=== PATIENT | female | born 1945 | race Caucasian/White ===

== ENCOUNTER 2019-03-29 05:07 | Observation (INO) | payer MEDICARE, SELFPAY ==
[2019-03-29] VITALS (21 sets, daily range): BP systolic 137–146; BP diastolic 58–80; PULSE 83–106; RESP 16–26; TEMP 36.1–36.7; O2SAT 89–96; BMI 31.1
--- NOTE | ~2019-03-29 | CT_ITS ---
EXAMINATION: CTA chest PE protocol DATE: 03/29/2019 09:02 PRINT MANAGER INDICATION: Shortness of breath. Elevated d-dimer. TECHNIQUE: Computed tomographic angiography (CTA) of the chest was performed with 100 mL Omnipaque-35 0 intravenous contrast. The dose-length product was 419.63 mGy-cm. Maximum intensity projection 3D-re constructions of the aorta and other arteries were constructed by the technologist on a separate work station. Automated exposure control and iterative reconstruction technique were employed. COMPARISON: Chest dated 03/29/2019 FINDINGS: Study is technically adequate without evidence for pulmonary embolism. No significant pleur al or pericardial effusion. Cardiomegaly. No thoracic lymphadenopathy. There is discoid atelectasis i n the lower lobes and lingula. No endobronchial lesions. No suspicious pulmonary nodules or masses. N o pneumothorax. There are cholecystectomy clips. There is a 5 mm right middle lobe nodule. IMPRESSION: 1. No evidence for pulmonary embolism. 2: Discoid atelectasis of the lower lobes and lingula. 3: 5 mm right middle lobe nodule. Follow-up low dose CT chest in 12 months recommended. 4: Cardiomegaly. Reviewed, dictated and finalized at location A. T MANAGER IMPRESSION: 1. No evidence for pulmonary embolism. 2: Discoid atelectasis of the lower lobes and lingula. 3: 5 mm right middle lobe nodule. Follow-up low dose CT chest in 12 months rec ommended. 4: Cardiomegaly.
--- NOTE | ~2019-03-29 | XR_ITS ---
EXAMINATION: XR chest 1V portable DATE: 03/29/2019 05:44 INDICATION: Dyspnea TECHNIQUE: frontal view of the chest was obtained. COMPARISON: None FINDINGS: The lungs are clear with no focal airspace opacities, pulmonary edema, pleural effusion or pneumothor ax. The cardiomediastinal silhouette is normal. Mild scattered degenerative skeletal changes. IMPRESSION: 1. No acute cardiopulmonary disease. Reviewed, dictated and finalized at location A. T OR NUT GROWER
--- NOTE | ~2019-03-29 | XR_ITS ---
EXAMINATION: XR chest 2V DATE: 03/30/2019 09:00 INDICATION: Asthma exacerbation TECHNIQUE: Frontal and lateral views of the chest are obtained COMPARISON: 03/29/2019 FINDINGS: There is mild atelectasis of the lung bases. There is no pleural effusion or pneumothorax. The cardiomediastinal silhouette is normal. There is mild thoracic spondylosis. Cholecystectomy clips are noted. IMPRESSION: 1. Mild atelectasis of the lung bases. Reviewed, dictated and finalized at location A. TAPPING LABORER
--- NOTE | 2019-03-29 05:16 | ECG_ITS ---
Measurements Intervals [place] Rate: 99 P: 74 SD: 255 QRS: 17 QRSD: 98 T: 58 QT: 347 QTc: 447 Interpretive Statements SINUS RHYTHM WITH FIRST DEGREE AV BLOCK DELAYED PRECORDIAL R/S TRANSITION BORDERLINE ST-T WAVE ABNORMALITY- LATERAL LEADS BASELINE ARTIFACT- I, II, III ABNORMAL ECG Electronically Signed On 03-29-2019 7:06:47 CONSULTING PRACTICE MANAGER by Lamine Clayton D.O.
[2019-03-29] MEDS: LEVALBUTEROL NEB 1.25 MG/3 ML INHALATION (05:24)
[2019-03-29] MEDS: methylPREDNISolone SOD SUCC 125 MG VIAL IV PUSH (05:27)
[2019-03-29 05:37] LABS: Basophils Percent Auto 0.9 % (0.0-1.0); Eosinophils Absolute Auto 1.02 K/mm3 (0.02-0.50); Eosinophils Percent Auto 8.9 % (1.0-6.0); Hematocrit 40.3 % (35.0-42.0); Hemoglobin 13.5 g/dL (11.7-13.8); Immature Granulocyte Absolute 0.04 K/mm3 (0.00-0.00); Immature Granulocyte Percent A 0.3 % (0.0-0.0); Lymphocytes Absolute Auto 2.66 K/mm3 (1.10-4.50); Lymphocytes Percent Auto 23.2 % (18.0-42.0); Mean Corpuscular HGB Conc 33.5 g/dL (32.0-36.0); Mean Corpuscular Hemoglobin 28.8 pg (27.0-31.0); Mean Corpuscular Volume 86.1 fL (78.0-102.0); Mean Platelet Volume 8.9 fl (9.2-11.8); Monocytes Absolute Auto 1.15 K/mm3 (0.10-0.90); Neutrophils Absolute Auto 6.5 K/mm3 (1.7-7.2); Neutrophils Percent Auto 56.7 % (50.0-70.0); Platelet Count Result 363 K/mm3 (150-420); Red Blood Count 4.68 M/mm3 (4.20-5.40); Red Cell Distribution Width 13.3 % (11.6-14.4); White Blood Count 11.5 K/mm3 (4.8-10.8)
[2019-03-29 05:54] LABS: BNP 12.4 pg/mL (0-100)
[2019-03-29 05:57] LABS: Alanine Aminotransferase 26 U/L (14-59); Albumin Level 3.9 g/dL (3.4-5.0); Alkaline Phosphatase 81 U/L (46-116); Aspartate Amino Transferase 25 U/L (15-37); Bilirubin,Total 0.5 mg/dL (0.00-1.00); Blood Urea Nitrogen 20 mg/dL (7-18); Calcium 9.8 mg/dL (8.5-10.1); Carbon Dioxide 26 mmol/L (21-32); Chloride 97 mmol/L (98-108); Estimated CRCL calculation 46 ml/min; Estimated Glomerular Filt Rate 57; Glucose 168 mg/dL (70-99); Osmolality Calculated 284 mOsm/kg (285-295); Sodium 134 mmol/L (136-145); Total Protein 7.6 g/dL (6.4-8.2)
[2019-03-29 05:58] LABS: Troponin I < 0.02 ng/mL (0.00-0.056)
--- NOTE | 2019-03-29 05:58 | ED.SOB ---
HPI - SOB/Dyspnea General Chief Complaint: Shortness of Breath/Dyspnea Stated Complaint: SOB, Cough Related Data Home Medications Medication Instructions Recorded Confirmed amitriptyline 50 mg tablet 50 mg PO .Bedtime tablet 03/15/19 03/29/19 atenolol 100 mg tablet 100 mg PO DAILY 03/15/19 03/29/19 atorvastatin 40 mg tablet 40 mg PO DAILY 03/15/19 03/29/19 diltiazem HCl 120 mg 240 mg PO DAILY cap 03/15/19 03/29/19 capsule,extended release 12 hr famotidine 10 mg tablet 20 mg PO DAILY tablet 03/15/19 03/29/19 levothyroxine 100 mcg tablet 100 mcg PO DAILY 03/15/19 03/29/19 liraglutide 0.6 mg/0.1 mL (18 mg/3 See Rx Instructions SUB-Q .COMPLEX 03/15/19 03/29/19 mL) subcutaneous pen injector lutein 20 mg capsule 20 mg PO DAILY 03/15/19 03/29/19 metformin 500 mg tablet 500 mg PO BID 03/15/19 03/29/19 olmesartan 40 mg tablet 40 mg PO DAILY 03/15/19 03/29/19 benzonatate 200 mg PO PRN 03/29/19 03/29/19 Allergies Allergy/AdvReac Type Severity Reaction Status Date / Time codeine Allergy Unknown Unknown Verified 03/28/19 14:27 Review of Systems Review of Systems: All systems reviewed & are unremarkable except as noted in HPI and below PMFSH Past Medical History Medical History DM2 (diabetes mellitus, type 2) LATRELL (generalized anxiety disorder) GERD (gastroesophageal reflux disease) Hyperlipidemia Hypertension Hypothyroidism Overweight Surgical History Surgical History History of cholecystectomy History of hysterectomy Hx of cataract surgery Bilateral 2015 Family History Family History Father Heart disease Hypertension Diabetes mellitus Mother Cerebrovascular accident CAD (coronary artery disease) Rheumatic heart disease Sibling Breast cancer Social History Social History Smoking status: Never smoker Substance use: never Additional living arrangements comments: . 2 Children. 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 Exam Const: General: no acute distress and alert Nutritional Appearance: well nourished Orientation/consciousness: oriented x3 Limitations: altered mental status HENMT: Head: normal to inspection Mouth: Yes dry mucous membranes Neck: Neck: normal visual inspection and no lymphadenopathy Chest: Chest palpation & inspection: normal inspection of the chest Resp: Effort & Inspection: normal respiratory effort and tachypneic Auscultation: rhonchi and wheezes Cardio: Rate: regular rate Rhythm: regular rhythm GI: GI Palp: Yes soft Auscultation: normal bowel sounds : General: Yes no CVA tenderness Back/Spine/Pelvis: Back: no CVA tenderness Skin: General skin exam: normal color Rashes: no rashes Neuro: General: oriented x3, moves all extremities, no meningeal signs and no focal motor deficits Extrem: General: normal to inspection and no pedal edema Psych: Mental Status: mental status grossly normal Course Vital Signs Vital signs: Vital Signs Pulse Rate 106 H 03/29/19 05:16 Temperature 36.7 C 03/29/19 05:17 Pulse Rate 96 03/29/19 05:46 Respiratory Rate 20 03/29/19 05:46 Blood Pressure 146/79 H 03/29/19 05:17 Pulse Oximetry 90 03/29/19 05:17 MDM - SOB/Dyspnea Lab Data Attestation: I reviewed the patient's lab results. Result diagrams: 03/29/19 05:31 03/29/19 05:31 Labs: Lab Results 03/29/19 03/29/19 03/29/19 Range/Units 05:31 05:31 05:36 WBC 11.5 H (4.8-10.8) K/mm3 RBC 4.68 (4.20-5.40) M/mm3 Hgb 13.5 (11.7-13.8) g/dL Hct 40.3 (35.0-42.0) % MCV 86.1 (78.0-102.0) fL MCH 28.8 (27.0-31.0) pg MCHC 33.5 (32.0-36.0) g/dL RDW 13.3 (11.6-14.4) % Plt Count 363 (15
[2019-03-29 06:07] LABS: Influenza Control Valid (Valid)
[2019-03-29] MEDS: IPRATROPIUM 0.5 MG/ALBUTEROL SULFATE 2.5 MG AMPUL.NEB 3 ML INHALATION ×3 (06:30→17:48)
--- NOTE | 2019-03-29 06:57 | PC.NURSE ---
0630 Pt. taken off NC O2, p few min. SPO2 noted at 90% and pt. wheezing again. Pt. placed back on O2 at 2L. Pts. SPO2 increased to 96%.
--- NOTE | 2019-03-29 06:58 | PC.NURSE ---
ERP spoke to pt. about admission due to her SPO2 low p taken off O2 and need for further medications and neb tx. Pt. agreeable to admit. Pt. will be made 23 hr. obs.
[2019-03-29 07:20] LABS: Base Excess ABG -2.4 mmol/L (0-2); Oxygen Saturation ABG 93.4 % (95-97); PCO2 ABG 41.9 mmHg (35-45); PO2 ABG 65.6 mmHg (75-85); Total Hemoglobin 14.7 g/dL; pH ABG 7.36 (7.35-7.45)
[2019-03-29 07:22] LABS: Device NASAL CANNULA; Modified Allen's Test Pass; Site Drawn LEFT RADIAL
[2019-03-29 07:35] LABS: D Dimer 2.02 mg/L (0.19-0.50)
--- NOTE | 2019-03-29 07:57 | PC.NURSE ---
Admitted to floor, oriented to room and call light. Patient assisted from wheelchair to bed. Patient ambulated to restroom unassisted without oxygen. Patient returned to bed, SPO2 spot check 89% on room air. O2 replaced per nasal cannula at 2L. Patient in bed resting comfortably
--- NOTE | 2019-03-29 08:25 | PC.NURSE ---
Patient taken off floor to Radiology for chest CT
--- NOTE | 2019-03-29 08:52 | PM.IMHP ---
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 When she arrived at the ER, she was found to have PaO2 in the 60s. She had denied sick contacts, has had a non productive cough for the past month and was treated twice with inhalers, which did not help much at all last night. She denies smoking or being exposed to second hand smoke. This morning she got out of bed to walk to the bathroom, and ended up with O2 sats at 89 without O2 on. When she had O2 put on, her respirations improved. Review of Systems Review of Systems: All systems reviewed & are unremarkable except as noted in HPI and below Constitutional: Constitutional: Reports as per HPI and Reports no additional constitutional complaints Eyes: Eyes: Reports as per HPI and Reports no additional eye complaints ENT: Reports system reviewed and no additional complaints, except as documented and Reports as per HPI Cardiovascular: Cardiovascular: Reports as per HPI and Reports no additional cardiovascular complaints Respiratory: Respiratory: Reports as per HPI, Reports no additional respiratory complaints, Reports cough, Reports dyspnea, Reports dyspnea on exertion and Reports wheezing Gastrointestinal: Gastrointestinal: Reports as per HPI and Reports no additional gastrointestinal complaints Genitourinary: Genitourinary: Reports no additional female genitourinary complaints and Reports as per HPI Musculoskeletal: Musculoskeletal: Reports no additional musculoskeletal complaints and Reports as per HPI Integumentary/Breasts: Skin/Breast: Reports system reviewed and no additional complaints, except as docu and Reports as per HPI Neurologic: Reports system reviewed and no additional complaints, except as documented and Reports as per HPI Psychiatric: Psychiatric: Reports no additional psychiatric complaints and Reports as per HPI PMF Past Medical History Medical History (Updated 03/29/19 @ 14:43 by Rachel Schwab NP) Asthma DM2 (diabetes mellitus, type 2) LATRELL (generalized anxiety disorder) GERD (gastroesophageal reflux disease) Hyperlipidemia Hypertension Hypothyroidism Osteoporosis Overweight Surgical History Surgical History (Updated 03/29/19 @ 09:57 by Rachel Schwab NP) History of cholecystectomy History of hysterectomy History of tonsillectomy Hx of cataract surgery Bilateral 2014 Family History Family History Father Heart disease Hypertension Diabetes mellitus Mother Cerebrovascular accident CAD (coronary artery disease) Rheumatic heart disease Sibling Breast cancer Social History Social History Smoking status: Never smoker Second hand tobacco smoke exposure: Yes ( smoked for 46 years, smoked in home and vehicle, quit in 1984) Alcohol intake: current Drinks per week: 0 Substance use: never Other substance usage details: rarely drinks alcohol Additional living arrangements comments: . 2 Children. Additional occupation/education comments: Prior Occupation: [employer] Gender identity (if verbalized by the patient): Female Spiritual care concerns: No Agree to blood products: Yes Meds Home Medications and Allergies Home Medications Medication Instructions Recorded Confirmed Type amitriptyline 50 mg tablet 50 mg PO .Bedtime tablet 03/15/19 03/29/19 History atenolol 100 mg tablet 100 mg PO DAILY 03/15/19 03/29/19 History atorvastatin 40 mg tablet 40 mg PO DAILY 03/15/19 03/29/19 History diltiazem HCl 120 mg 240 mg PO DAILY cap 03/15/19 03/29/19 History capsule,extended release 12 hr doxycycline hyclate 100 mg capsule 100 mg PO BID #20 cap 03/15/19 03/29/19 Rx famotidine 10 mg tablet 20
--- NOTE | 2019-03-29 09:10 | PC.NURSE ---
Patient returned to floor per wheelchair from CT
[2019-03-29] MEDS: SODIUM CHLORIDE 0.9% IV 1,000 ML 100 ML IV CONT ×2 (09:19→18:26)
[2019-03-29] MEDS: FAMOTIDINE 20 MG TABLET PO (09:21)
[2019-03-29] MEDS: OLMESARTAN MEDOXOMIL 20 MG TABLET 40 MG PO (09:21)
[2019-03-29] MEDS: atenoloL 50 MG TABLET 100 MG PO (09:25)
[2019-03-29] MEDS: OPTI-GEN TAB 1 TABLET PO (09:25)
[2019-03-29] MEDS: DOXYCYCLINE HYCLATE 100 MG TABLET PO ×2 (09:25→20:16)
[2019-03-29] MEDS: LEVOTHYROXINE SODIUM 100 MCG TABLET PO (09:28)
[2019-03-29] MEDS: ENOXAPARIN 40 MG/0.4 ML SYRINGE SUB-Q (09:36)
--- NOTE | 2019-03-29 10:30 | PC.NURSE ---
Resting in bed, no distress, oxygen in place at this time
[2019-03-29 11:52] LABS: Glucose Point of Care 237 (65-105)
[2019-03-29] MEDS: methylPREDNISolone SOD SUCC 125 MG VIAL 60 MG IV PUSH ×2 (12:00→17:47)
--- NOTE | 2019-03-29 13:36 | P.PNCROSS_ITS ---
Event Note Event Note: For this patient encounter, I reviewed the CORE MICROARCHITECT or PA documentation, treatment plan, and medical decision making; and I had dgmc-wn-wpnf time with this patient. Breath sounds decreased throughout all lung messer. Able to speak full sentences, but somewhat labored.
--- NOTE | 2019-03-29 13:36 | PM.EVENT ---
Event Note Event Note: For this patient encounter, I reviewed the LICENSED CUSTOMS BROKER or PA documentation, treatment plan, and medical decision making; and I had acom-np-dash time with this patient. Breath sounds decreased throughout all lung messer. Able to speak full sentences, but somewhat labored.
[2019-03-29 16:46] LABS: Glucose Point of Care 261 (65-105)
[2019-03-29] MEDS: CALCIUM CARBONATE (OSCAL) 250 MG TABLET PO (17:11)
--- NOTE | 2019-03-29 17:18 | PC.NURSE ---
Sitting on edge of bed eating dinner, no acute distress noted, oxygen on at this time, cough occassional, non productive
--- NOTE | 2019-03-29 17:43 | PC.NURSE ---
up to void, gait steady, tolerated well, no distress noted
[2019-03-29] MEDS: CALCIUM CARBONATE (OSCAL) 500 MG TABLET (17:50)
--- NOTE | 2019-03-29 18:30 | PC.NURSE ---
Resting in bed with HOB elevated, fluids infusing, oxygen in palce
--- NOTE | 2019-03-29 20:10 | PC.NURSE ---
Patient sitting on side of bed watching tv. Respirations even and unlabored on O2 @ 2 lpm/nc. Intermittent non-productive cough continues. NS infusing to site in right hand without difficulty. Denies pain/complaints/needs @ this time. No distress noted. Call light and personal belongings within reach.
[2019-03-29] MEDS: AMITRIPTYLINE HCL 25 MG TABLET 50 MG PO (20:14)
[2019-03-29] MEDS: ATORVASTATIN 10 MG TABLET 40 MG PO (20:15)
[2019-03-29 20:21] LABS: Glucose Point of Care 258 (65-105)
--- NOTE | 2019-03-29 22:00 | PC.NURSE ---
Patient appears to be sleeping by the rise and fall of her chest. Respirations even and unlabored on O2 @ 2 lpm/nc. Intermittent non-productive cough continues. NS infusing to site in right hand without difficulty. No distress noted. Call light and personal belongings within reach.
[2019-03-30] VITALS (10 sets, daily range): BP systolic 112–150; BP diastolic 51–87; PULSE 84–97; RESP 16–20; TEMP 36.2–36.6; O2SAT 93–98
[2019-03-30] MEDS: methylPREDNISolone SOD SUCC 125 MG VIAL 60 MG IV PUSH ×2 (00:07→06:05)
[2019-03-30] MEDS: IPRATROPIUM 0.5 MG/ALBUTEROL SULFATE 2.5 MG AMPUL.NEB 3 ML INHALATION ×3 (00:08→11:28)
--- NOTE | 2019-03-30 01:05 | PC.NURSE ---
Patient appears to be sleeping by the rise and fall of her chest. Respirations even and unlabored on O2 @ 2 lpm/nc. NS infusing to site in right hand without difficulty. No distress noted. Call light and personal belongings within reach.
[2019-03-30] MEDS: SODIUM CHLORIDE 0.9% IV 1,000 ML 100 ML IV CONT (04:02)
[2019-03-30 05:00] LABS: Basophils Absolute Auto 0.01 K/mm3 (0.00-0.10); Basophils Percent Auto 0.1 % (0.0-1.0); Eosinophils Absolute Auto 0.01 K/mm3 (0.02-0.50); Eosinophils Percent Auto 0.1 % (1.0-6.0); Hematocrit 34.7 % (35.0-42.0); Hemoglobin 11.9 g/dL (11.7-13.8); Immature Granulocyte Percent A 0.9 % (0.0-0.0); Lymphocytes Absolute Auto 1.08 K/mm3 (1.10-4.50); Lymphocytes Percent Auto 9.2 % (18.0-42.0); Mean Corpuscular HGB Conc 34.3 g/dL (32.0-36.0); Mean Corpuscular Hemoglobin 29.5 pg (27.0-31.0); Mean Corpuscular Volume 86.1 fL (78.0-102.0); Mean Platelet Volume 8.9 fl (9.2-11.8); Monocytes Absolute Auto 0.24 K/mm3 (0.10-0.90); Neutrophils Absolute Auto 10.3 K/mm3 (1.7-7.2); Neutrophils Percent Auto 87.7 % (50.0-70.0); Platelet Count Result 292 K/mm3 (150-420); Red Blood Count 4.03 M/mm3 (4.20-5.40); Red Cell Distribution Width 13.2 % (11.6-14.4); White Blood Count 11.7 K/mm3 (4.8-10.8)
[2019-03-30 05:19] LABS: Alanine Aminotransferase 21 U/L (14-59); Albumin Level 3.2 g/dL (3.4-5.0); Alkaline Phosphatase 60 U/L (46-116); Anion Gap 16.1 mmol/L (7-16); Aspartate Amino Transferase 14 U/L (15-37); Bilirubin,Total 0.5 mg/dL (0.00-1.00); Blood Urea Nitrogen 18 mg/dL (7-18); Calcium 9.1 mg/dL (8.5-10.1); Carbon Dioxide 23 mmol/L (21-32); Chloride 98 mmol/L (98-108); Estimated CRCL calculation 52 ml/min; Estimated Glomerular Filt Rate > 60; Glucose 273 mg/dL (70-99); Magnesium 1.2 mg/dL (1.8-2.4); Osmolality Calculated 287 mOsm/kg (285-295); Phosphorus 3.1 mg/dL (2.6-4.7); Potassium 4.1 mmol/L (3.5-5.1); Sodium 133 mmol/L (136-145); Total Protein 6.5 g/dL (6.4-8.2)
[2019-03-30] MEDS: LEVOTHYROXINE SODIUM 100 MCG TABLET PO (06:06)
--- NOTE | 2019-03-30 06:10 | PC.NURSE ---
Patient awakened easily and took po med without difficulty. NS infusing to site in right hand without difficutly and Solumedrol given in same site. Denies pain/complaints/needs @ this time. RT starting patient's duoneb when nurse left room. No distress noted. Call light and personal belongings within reach.
[2019-03-30 07:58] LABS: Glucose Point of Care 266 (65-105)
[2019-03-30] MEDS: ENOXAPARIN 40 MG/0.4 ML SYRINGE SUB-Q (08:52)
[2019-03-30] MEDS: atenoloL 50 MG TABLET 100 MG PO (08:53)
[2019-03-30] MEDS: OLMESARTAN MEDOXOMIL 20 MG TABLET 40 MG PO (08:53)
[2019-03-30] MEDS: OPTI-GEN TAB 1 TABLET PO (08:53)
[2019-03-30] MEDS: DOXYCYCLINE HYCLATE 100 MG TABLET PO (08:53)
[2019-03-30] MEDS: FAMOTIDINE 20 MG TABLET PO (08:54)
--- NOTE | 2019-03-30 10:03 | PM.DS ---
DS: Diagnosis Admitting Diagnosis Admitting Diagnosis: Acute respiratory failure with hypoxia Discharge Diagnosis (1) Acute respiratory failure with hypoxia: Code(s): J96.01 - Acute respiratory failure with hypoxia Status: Acute Assessment and Plan: - ?new diagnosis of asthma - will need PFT - nebs and steroids (steroids to change to PO) - will keep calcium and PPI in regimen while on steroids - antibiotics (2) Elevated d-dimer: Code(s): R79.89 - Other specified abnormal findings of blood chemistry Status: Acute Assessment and Plan: - negative CTA for pulmonary embolism (3) Asthma with acute exacerbation: Code(s): J45.901 - Unspecified asthma with (acute) exacerbation Status: Acute Assessment and Plan: - no prior h/o or diagnosis of asthma made - will need outpt PFTs (4) Pulmonary nodule seen on imaging study: Code(s): R91.1 - Solitary pulmonary nodule Status: Acute Assessment and Plan: - will need follow up in 12 months per radiologist's recommendations (5) DM2 (diabetes mellitus, type 2): Code(s): E11.9 - Type 2 diabetes mellitus without complications Status: Acute Assessment and Plan: - held metformin for IVP dye, OK to start on metformin again tonight 03/30/19 - SSI ACHS - resume other home meds (6) Hypothyroidism: Code(s): E03.9 - Hypothyroidism, unspecified Status: Acute Assessment and Plan: - on LT4 (7) Hypertension: Code(s): I10 - Essential (primary) hypertension Status: Acute Assessment and Plan: - BP controlled (8) Hyperlipidemia: Code(s): E78.5 - Hyperlipidemia, unspecified Status: Acute Assessment and Plan: - on statin (9) Leukocytosis: Code(s): D72.829 - Elevated white blood cell count, unspecified Status: Acute Assessment and Plan: - likely 2/2 steroids, and reactive DS: Summary Hospital Course Reason for hospitalization: SOB with coughing Hospital Course: 03/29/19: 74 year old CF presented at the ER after a meeting at her [employer] where she was coughing uncontrollably and had trouble catching her breath. When she arrived at the ER, she was found to have PaO2 in the 60s. She had denied sick contacts, has had a non productive cough for the past month and was treated twice with inhalers, which did not help much at all last night. She denies smoking or being exposed to second hand smoke. This morning she got out of bed to walk to the bathroom, and ended up with O2 sats at 89 without O2 on. When she had O2 put on, her respirations improved. 03/30/19: today, she feels better and does not require oxygen. She says that she breathes better, and is not coughing as much. Status at Discharge Cognitive/behavioral status at discharge: alert, calm. Functional status at discharge: independent ambulation Overall status at discharge: patient is progressing back to baseline Time Spent with Patient Time attestation: Total time spent providing and/or coordinating discharge services: 35 minutes Exam Narrative: Exam Narrative: awake, alert, in no acute distress, no conversational dyspnea Const: General: comfortable and no acute distress; No in distress HENMT: Mouth: Yes moist mucous membranes Eyes: General: appearance normal, both eyes and all related structures Sclera: sclerae normal Pupils: PERRL EOM: EOM intact bilaterally Neck: Other: no tracheal deviation Chest: Other: no TTP chest pineda Resp: Effort & Inspection: normal respiratory effort, able to speak in complete sentences and no use of accessory muscles Cardio: Rate: regular rate Rhythm: regular rhythm GI: Inspection: non-distended Auscultation: normal bowel sounds : Other: deferred Skin: General skin exam: normal color and no rashes or lesions noted Neuro: Cranial nerves: Yes PERRL Cognition (Neuro): normal cognition Speech: normal speech Motor exam (neuro):
[2019-03-30] MEDS: predniSONE 20 MG TABLET 60 MG PO (10:09)
[2019-03-30] MEDS: MAGNESIUM SULF 4 GM/WATER100ML 4 GM/100 ML BAG IVPB (10:10)
[2019-03-30 12:09] LABS: Glucose Point of Care 296 (65-105)
--- NOTE | 2019-03-30 12:10 | PC.NURSE ---
Magnesium sulfate 4Gm stopped at 1210
[2019-03-30] MEDS: predniSONE 20 MG TABLET 60 MG (12:18)
[2019-03-30] MEDS: MAGNESIUM SULF 4 GM/WATER100ML 4 GM/100 ML BAG 50 GM (12:43)
--- NOTE | 2019-04-12 13:11 | PC.NURSE ---
Discharge Call Back [phone] unable to contact
== END 2019-03-30 13:38 | disposition home or self-care (01) ==
LOC: CHSED 06:48 → CHS2ND 06:57
PROVIDERS: Nurse Practitioner Acute Care; Admitting Provider Emergency Medicine; Emergency Provider Emergency Medicine; PCP Family Medicine; Visit Provider Emergency Medicine
DX: J96.01 Acute respiratory failure with hypoxia (principal); J45.901 Unspecified asthma with (acute) exacerbation; R79.89 Other specified abnormal findings of blood chemistry; R91.1 Solitary pulmonary nodule; E11.9 Type 2 diabetes mellitus without complications; K21.9 Gastro-esophageal reflux disease without esophagitis; E78.5 Hyperlipidemia, unspecified; I10 Essential (primary) hypertension; E03.9 Hypothyroidism, unspecified; M81.0 Age-related osteoporosis without current pathological fracture
CPT/HCPCS: 36415; 36600; 71045; 71046; 71275; 80053; 82805; 83735; 83880; 84100; 84484; 85025; 85380; 87040; 87804; 93005; 94618; 94640; 96361; 96365; 96366; 96372; 96375; 96376; 99283; 99285; A9270; G0378; J1650; J1815; J2930; J3475; J7030; J7512; Q9965

== ENCOUNTER 2020-04-03 12:56 | Outpatient (CLI) | payer MEDICARE, SELFPAY ==
[2020-04-06 16:54] LABS: SARS-CoV-2 RNA PCR Positive
== END 2020-04-03 12:57 | disposition home or self-care (01) ==
LOC: CHSLAB 13:00
PROVIDERS: PCP Family Medicine; Visit Provider Family Medicine
DX: U07.1 COVID-19 (principal)
CPT/HCPCS: 87635; C9803; U0003

== ENCOUNTER 2020-10-05 08:20 | Outpatient (CLI) | payer MEDICARE, SELFPAY ==
--- NOTE | ~2020-10-05 | DEXA_ITS ---
Bone Density Report Name: Elsi Pierce Age: 75 Sex: Female Ethnicity: White Date of : 1945 Indication: postmenopausal; screening for osteoporosis; height loss; hysterectomy; Referring Provider: Brooks See Study: Bone densitometry was performed. Exam Date: October 05, 2020 Accession number: [id number] Bone Density: Region BMD T-score Z-score Classification AP Spine(L1, L2) 1.082 0.9 3.2 Normal Femoral Neck (Left) 0.934 0.8 2.9 Normal Total Hip (Left) 1.088 1.2 3.0 Normal Femoral Neck (Right) 0.976 1.1 3.3 Normal Total Hip (Right) 1.110 1.4 3.2 Normal Femoral Neck Mean 0.955 1.0 3.1 Normal Total Hip Mean 1.099 1.3 3.1 Normal World Health Organization criteria for BMD impression classify patients as: Normal (T-score at or above -1.0), Osteopenia (T-score between -1.0 and -2.5), or Osteoporosis (T-score at or below -2.5). 10-year Fracture Risk: FRAX not reported because: All T-scores for Spine Total, Hip Total, Femoral Neck at or above -1.0 Previous Exams: Region Exam Age BMD T-score BMD Change BMD Change Date g/cm2 vs Baseline vs Previous AP Spine (L1-L2) 10/05/2020 75 1.082 0.9 -0.019 (-1.7%) -0.019 (-1.7%) 06/07/2018 73 1.101 1.1 Total Hip(Left) 10/05/2020 75 1.088 1.2 -0.152 (-12.3% -0.152 (-12.3% 06/07/2018 73 1.240 2.4 Total Hip(Right) 10/05/2020 75 1.110 1.4 -0.026 (-2.3%) -0.026 (-2.3%) 06/07/2018 73 1.136 1.6 *Denotes significance at 95% confidence level, LSC for AP Spine = 0.022 g/cm2, LSC for Total Hip = 0.027 g/cm2 # Denotes dissimilar scan types or analysis methods Clinical Information Provided by Patient: Has used the following medications: HRT (i.e. estrogen/hormone therapy), Vitamin D, Calcium Has the following medical conditions: Hysterectomy Patient maximum height was 63 No regular weight bearing exercise Drinks caffeinated beverages Onset of menses at age 11 Number of children 2 Impression: The patient has normal bone mass. No significant bone loss was observed. Discussion: LOW RISK OF FRACTURE; BONE DENSITY IS WELL ABOVE THE MINIMUM DESIRABLE LEVEL AND ABOVE AVERAGE FOR AGE AND SEX AT ALL SKELETAL SITES TESTED. This person's bone density is above expected limits for age and sex. This is rarely clinically significant, but should be pursued if there are significant musculoskeletal complaints. The patient should follow a healthful lifestyle (g
== END 2020-10-05 08:21 | disposition home or self-care (01) ==
LOC: CHSIMG 08:21
PROVIDERS: PCP Family Medicine; Visit Provider Family Medicine
DX: Z78.0 Asymptomatic menopausal state (principal)
CPT/HCPCS: 77080

== ENCOUNTER 2021-05-27 10:18 | Outpatient (CLI) | payer MEDICARE, SELFPAY ==
--- NOTE | 2021-05-27 10:20 | ECG_ITS ---
Measurements Intervals [place] Rate: 82 P: 70 MS: 260 QRS: 64 QRSD: 97 T: 55 QT: 368 QTc: 430 Interpretive Statements SINUS RHYTHM WITH FIRST DEGREE AV BLOCK ATRIAL PREMATURE COMPLEX BORDERLINE R WAVE PROGRESSION, ANTERIOR LEADS BASELINE ARTIFACT- II, III, AVR, AVL, AVF, V5 ABNORMAL ECG Electronically Signed On 05-27-2021 10:57:57 MERINGUER by Lamine Clayton D.O.
[2021-05-27 10:51] LABS: Hematocrit 41.7 % (35.0-42.0); Hemoglobin 13.5 g/dL (11.7-13.8); Mean Corpuscular HGB Conc 32.4 g/dL (32.0-36.0); Mean Corpuscular Hemoglobin 27.6 pg (27.0-31.0); Mean Corpuscular Volume 85.3 fL (78.0-102.0); Mean Platelet Volume 9.3 fl (9.2-11.8); Platelet Count Result 348 K/mm3 (150-420); Red Blood Count 4.89 M/mm3 (4.20-5.40); Red Cell Distribution Width 14.5 % (11.6-14.4); White Blood Count 7.7 K/mm3 (4.8-10.8)
[2021-05-27 10:57] LABS: Add Urine Microscopic? YES; Appearance Urine Clear (Clear); Bilirubin Urine Negative (Negative); Blood Urine Negative (Negative); Color Urine Light Yellow (Yellow); Glucose Urine UA 3+ (Negative); Ketones Urine Negative (Negative); Leukocyte Esterase Ur Negative (Negative); Nitrate Urine Negative (Negative); Protein Urine Negative (Negative); Urobilinogen Urine 0.2 mg/dL (0.2-1.0); pH Urine 6.5 (5.0-8.0)
[2021-05-27 11:09] LABS: Hemoglobin A1C 6.8 % (<5.7)
[2021-05-27 11:14] LABS: Bacteria Urine None seen /hpf; RBC Urine None seen /hpf (0-2); Squamous Epithelial Cell Urine Rare /hpf (Few); WBC Urine None seen /hpf (0-3)
[2021-05-27 11:46] LABS: Alanine Aminotransferase 26 U/L (14-59); Albumin Level 3.7 g/dL (3.4-5.0); Alkaline Phosphatase 73 U/L (46-116); Anion Gap 13 mmol/L (8-16); Aspartate Amino Transferase 13 U/L (15-37); Bilirubin,Total 0.6 mg/dL (0.00-1.00); Blood Urea Nitrogen 15 mg/dL (7-18); Calcium 9.7 mg/dL (8.5-10.1); Carbon Dioxide 25 mmol/L (21-32); Chloride 99 mmol/L (98-108); Estimated Glomerular Filt Rate 59; Glucose 133 mg/dL (70-99); Osmolality Calculated 286 mOsm/kg (285-295); Potassium 4.7 mmol/L (3.5-5.1); Sodium 137 mmol/L (136-145); Total Protein 6.8 g/dL (6.4-8.2)
== END 2021-05-27 10:19 | disposition home or self-care (01) ==
LOC: CHSLAB 10:20
PROVIDERS: PCP Family Medicine; Visit Provider Family Medicine
DX: E11.59 Type 2 diabetes mellitus with other circulatory complications (principal); I10 Essential (primary) hypertension; Z01.818 Encounter for other preprocedural examination
CPT/HCPCS: 36415; 80053; 81001; 83036; 85027; 87081; 93005

== ENCOUNTER 2021-07-28 14:38 | Outpatient (CLI) | payer MEDICARE, SELFPAY ==
[2021-07-28 14:55] LABS: Hematocrit 36.8 % (35.0-42.0); Hemoglobin 11.5 g/dL (11.7-13.8); Mean Corpuscular HGB Conc 31.3 g/dL (32.0-36.0); Mean Corpuscular Hemoglobin 26.7 pg (27.0-31.0); Mean Corpuscular Volume 85.6 fL (78.0-102.0); Mean Platelet Volume 9.5 fl (9.2-11.8); Platelet Count Result 398 K/mm3 (150-420); Red Cell Distribution Width 13.8 % (11.6-14.4); White Blood Count 9.4 K/mm3 (4.8-10.8)
[2021-07-28 14:57] LABS: Add Urine Microscopic? YES; Appearance Urine Clear (Clear); Bilirubin Urine Negative (Negative); Blood Urine Negative (Negative); Color Urine Light Yellow (Yellow); Glucose Urine UA 3+ (Negative); Ketones Urine Negative (Negative); Leukocyte Esterase Ur Trace (Negative); Nitrate Urine Negative (Negative); Protein Urine Negative (Negative); Specific Grav Ur <= 1.005 (1.010-1.020); Urobilinogen Urine 0.2 mg/dL (0.2-1.0); pH Urine 5.5 (5.0-8.0)
[2021-07-28 15:02] LABS: Bacteria Urine Trace /hpf; RBC Urine None seen /hpf (0-2); Squamous Epithelial Cell Urine Rare /hpf (Few); WBC Urine 0-3 /hpf (0-3)
[2021-07-28 15:21] LABS: Alanine Aminotransferase 26 U/L (14-59); Albumin Level 3.9 g/dL (3.4-5.0); Alkaline Phosphatase 86 U/L (46-116); Anion Gap 10 mmol/L (8-16); Aspartate Amino Transferase 18 U/L (15-37); Bilirubin,Total 0.4 mg/dL (0.00-1.00); Blood Urea Nitrogen 23 mg/dL (7-18); Calcium 9.6 mg/dL (8.5-10.1); Carbon Dioxide 25 mmol/L (21-32); Chloride 101 mmol/L (98-108); Estimated Glomerular Filt Rate 48; Glucose 144 mg/dL (70-99); Osmolality Calculated 288 mOsm/kg (285-295); Potassium 4.5 mmol/L (3.5-5.1); Sodium 136 mmol/L (136-145); Total Protein 7.2 g/dL (6.4-8.2)
== END 2021-07-28 14:39 | disposition home or self-care (01) ==
LOC: CHSLAB 14:40
PROVIDERS: PCP Family Medicine; Visit Provider Family Medicine
DX: Z01.818 Encounter for other preprocedural examination (principal)
CPT/HCPCS: 36415; 80053; 81001; 85027

== ENCOUNTER 2021-10-22 09:10 | Outpatient (CLI) | payer MEDICARE, SELFPAY ==
--- NOTE | ~2021-10-22 | XR_ITS ---
XR chest 2V 10/22/2021 09:49 Indication: Pruritus. Procedure: 2 view chest Comparison: 03/30/2019 Findings: Heart size normal. Left basilar atelectasis/scarring. No focal pneumonia, edema, pleural ef fusion or pneumothorax. Impression: 1: Left basilar atelectasis/scarring. Reviewed, dictated and finalized at location A. Impression: 1: Left basilar atelectasis/scarring.
[2021-10-22 09:27] LABS: Basophils Absolute Auto 0.08 K/mm3 (0.00-0.10); Eosinophils Absolute Auto 0.51 K/mm3 (0.02-0.50); Eosinophils Percent Auto 6.2 % (1.0-6.0); Hemoglobin 11.1 g/dL (11.7-13.8); Immature Granulocyte Absolute 0.06 K/mm3 (0.00-0.00); Immature Granulocyte Percent A 0.7 % (0.0-0.0); Lymphocytes Absolute Auto 1.98 K/mm3 (1.10-4.50); Lymphocytes Percent Auto 24.2 % (18.0-42.0); Mean Corpuscular HGB Conc 31.7 g/dL (32.0-36.0); Mean Corpuscular Hemoglobin 24.7 pg (27.0-31.0); Mean Corpuscular Volume 77.8 fL (78.0-102.0); Mean Platelet Volume 9.2 fl (9.2-11.8); Monocytes Absolute Auto 0.74 K/mm3 (0.10-0.90); Neutrophils Absolute Auto 4.8 K/mm3 (1.7-7.2); Neutrophils Percent Auto 58.9 % (50.0-70.0); Platelet Count Result 400 K/mm3 (150-420); Red Cell Distribution Width 15.3 % (11.6-14.4); White Blood Count 8.2 K/mm3 (4.8-10.8)
[2021-10-22 10:03] LABS: Hemoglobin A1C 7.1 % (<5.7)
[2021-10-22 10:32] LABS: Alanine Aminotransferase 24 U/L (14-59); Albumin Level 3.5 g/dL (3.4-5.0); Alkaline Phosphatase 84 U/L (46-116); Anion Gap 10 mmol/L (8-16); Aspartate Amino Transferase 17 U/L (15-37); Bilirubin,Total 0.4 mg/dL (0.00-1.00); Blood Urea Nitrogen 21 mg/dL (7-18); Calcium 9.7 mg/dL (8.5-10.1); Carbon Dioxide 24 mmol/L (21-32); Chloride 99 mmol/L (98-108); Cholesterol 155 mg/dL (0-200); Estimated Glomerular Filt Rate 53; Ferritin 12 ng/mL (8-252); Glucose 153 mg/dL (70-99); HDL Direct 83 mg/dL (40-60); Iron 33 ug/dL (50-170); LDL Cholesterol Calculated 51 mg/dL (<130); Osmolality Calculated 282 mOsm/kg (285-295); Percent Iron Saturation 9 % (12-57); Potassium 4.7 mmol/L (3.5-5.1); Sodium 133 mmol/L (136-145); Total Protein 6.8 g/dL (6.4-8.2); Triglycerides 104 mg/dL (0-150)
[2021-10-22 10:35] LABS: Erythrocyte Sedimentation Rate 25 mm/hr (0-20)
[2021-10-22 10:53] LABS: CRP < 0.2 mg/dL (0.0-0.9); Thyroid Stimulating Hormone Reflex 2.28 u/IU/mL (0.36-3.74)
== END 2021-10-22 09:11 | disposition home or self-care (01) ==
LOC: CHSLAB 09:14
PROVIDERS: PCP Family Medicine; Visit Provider Specialist
DX: L29.9 Pruritus, unspecified (principal); L70.0 Acne vulgaris; Z79.899 Other long term (current) drug therapy
CPT/HCPCS: 36415; 71046; 80053; 80061; 82728; 83036; 83540; 83550; 84443; 85025; 85652; 86140

== ENCOUNTER 2022-06-01 06:42 | Day surgery (SDC) | payer MEDICARE, SELFPAY ==
[2022-05-23 08:09] VITALS: BMI 33.9
--- NOTE | 2022-05-31 12:56 | WPDANESEPPF ---
Anes - Initial Pre Proc Eval Procedure: Operation Date: 06/01/22 09:15 Proposed Procedures p Diagnostic Colonoscopy - Marcelino Mancia DO Date/Time: 05/31/22 12:56 Surgeon: Marcelino Mancia DO Pre Op Diagnosis: colon polyps Patient Data Age: 77 Gender: F Height: 1.55 m Weight: 81.5 kg Allergies Allergy/AdvReac Type Severity Reaction Status Date / Time codeine Allergy Unknown heart Verified 05/23/22 08:09 palpatations Home Medications Medication Instructions Recorded Confirmed Type multivitamin 1 tablet PO DAILY 03/06/19 05/23/22 History lutein 20 mg capsule 20 mg PO DAILY 03/15/19 05/23/22 History metformin 500 mg tablet 500 mg PO BID 03/15/19 05/23/22 History famotidine 10 mg tablet (Pepcid AC) 20 mg PO DAILY #30 tabs 03/30/19 05/23/22 Rx empagliflozin 10 mg tablet 10 mg PO DAILY 05/13/19 05/23/22 History (Jardiance) liraglutide 0.6 mg/0.1 mL (18 mg/3 See Rx Instructions subcut 05/13/19 05/23/22 History mL) subcutaneous pen injector .COMPLEX dm2 (Victoza 2-Raymond) alprazolam 0.25 mg tablet 0.25 mg PO DAILY PRN anxiety #20 12/09/19 05/23/22 Rx tabs levothyroxine 88 mcg capsule 88 mcg PO DAILY 10/23/20 05/23/22 History amitriptyline 25 mg tablet See Rx Instructions .Route 06/09/21 05/23/22 Rx .COMPLEX #90 tabs sertraline 50 mg tablet See Rx Instructions .Route 10/04/21 05/23/22 Rx .COMPLEX #90 tabs epinephrine 0.3 mg/0.3 mL 0.3 mg (0.3 mL) IM ONCE PRN 02/17/22 05/23/22 Rx injection, auto-injector anaphylaxis #2 ea atenolol 100 mg tablet See Rx Instructions .Route 02/18/22 05/23/22 Rx .COMPLEX #90 tabs olmesartan 40 mg tablet See Rx Instructions .Route 02/18/22 05/23/22 Rx .COMPLEX #90 tabs atorvastatin 40 mg tablet See Rx Instructions .Route 05/27/22 Rx .COMPLEX #90 tabs diltiazem HCl 120 mg See Rx Instructions .Route 05/27/22 Rx capsule,extended release 12 hr .COMPLEX #180 caps Patient hx anesthesia problems: none Family hx anesthesia problems: none Results Review: All pre-operative results and documents have been reviewed as part of the pre-operative evaluation. [facility] Past Medical History Medical History (Updated 06/01/22 @ 07:55 by Raf Faust MD) Asthma COPD (chronic obstructive pulmonary disease) LATRELL (generalized anxiety disorder) Hyperlipidemia associated with type 2 diabetes mellitus Hypertension associated with diabetes Hypothyroidism Obesity Overweight Pulmonary nodule Type 2 diabetes mellitus Surgical History Surgical History History of cholecystectomy History of hysterectomy History of tonsillectomy Hx of appendectomy Hx of cataract surgery Bilateral 2015 Family History Family History Father Heart disease Hypertension Diabetes mellitus Mother Cerebrovascular accident CAD (coronary artery disease) Rheumatic heart disease Sibling Breast cancer Father Hypertension Family history of type 2 diabetes mellitus Mother Family history of coronary artery disease Social History Social History Smoking status: Never smoker Second hand tobacco smoke exposure: Yes ( smoked for 46 years, smoked in home and vehicle, quit in 1984) Alcohol intake: current Drinks per week: 0 Substance use: never Substance use type: does not use Other substance usage details: rarely drinks alcohol Lack of Transportation: No Lack of Food: Never True Current Housing: I Have Housing Concerned About Future Housing: No Difficulty Paying Gas/Electric Bills: No Difficulty Paying for Meds: No Currently Unemployed: No Education: Master's Degree or Higher Difficulty w/ Childcare or Family Care: No Living arrangements: with family Additional living arrangements comments: . 2 Children. Occupation/Education: retired
[2022-06-01 07:50] VITALS: BP 135/71; PULSE 88; RESP 16; TEMP 36.5; O2SAT 96
[2022-06-01] MEDS: LACTATED RINGERS 1,000 ML 150 ML IV CONT (08:09)
[2022-06-01 08:10] LABS: Glucose Point of Care 138 mg/dl (65-105)
--- NOTE | 2022-06-01 08:54 | PM.IMHP ---
H&P: HPI History of Present Illness Date/Time: 06/01/22 08:54 Chief Complaint: screening for colorectal cancer Narrative: 77 yo woman presents for colonoscopy. Last done 10 years ago. Denies hematochezia or melena. Review of Systems Review of Systems: All systems reviewed & are unremarkable except as noted in HPI and below Constitutional: Constitutional: Denies chills, Denies fever(s), Denies headache(s) and Denies weight loss Eyes: Eyes: Denies change in vision ENT: Denies dizziness, Denies headache(s), Denies neck mass and Denies throat swelling Cardiovascular: Cardiovascular: Denies chest pain, Denies lightheadedness and Denies dyspnea Respiratory: Respiratory: Denies cough, Denies dyspnea and Denies wheezing Gastrointestinal: Gastrointestinal: Denies abdominal pain, Denies change in bowel habits, Denies nausea and Denies vomiting Genitourinary: Genitourinary: Denies hematuria and Denies dysuria Musculoskeletal: Musculoskeletal: Reports as per HPI Integumentary/Breasts: Skin/Breast: Reports as per HPI Neurologic: Denies dizziness and Denies headache(s) Allergic/Immunologic: Allergic/Immunologic: Denies throat swelling and Denies wheezing [facility] Past Medical History Medical History (Updated 06/01/22 @ 08:55 by Marcelino Mancia DO) Asthma COPD (chronic obstructive pulmonary disease) LATRELL (generalized anxiety disorder) Hyperlipidemia associated with type 2 diabetes mellitus Hypertension associated with diabetes Hypothyroidism Obesity Overweight Pulmonary nodule Type 2 diabetes mellitus Surgical History Surgical History History of cholecystectomy History of hysterectomy History of tonsillectomy Hx of appendectomy Hx of cataract surgery Bilateral 2015 Family History Family History Father Heart disease Hypertension Diabetes mellitus Mother Cerebrovascular accident CAD (coronary artery disease) Rheumatic heart disease Sibling Breast cancer Father Hypertension Family history of type 2 diabetes mellitus Mother Family history of coronary artery disease Social History Social History Smoking status: Never smoker Second hand tobacco smoke exposure: Yes ( smoked for 46 years, smoked in home and vehicle, quit in 1984) Alcohol intake: current Drinks per week: 0 Substance use: never Substance use type: does not use Other substance usage details: rarely drinks alcohol Lack of Transportation: No Lack of Food: Never True Current Housing: I Have Housing Concerned About Future Housing: No Difficulty Paying Gas/Electric Bills: No Difficulty Paying for Meds: No Currently Unemployed: No Education: Master's Degree or Higher Difficulty w/ Childcare or Family Care: No Living arrangements: with family Additional living arrangements comments: . 2 Children. 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 Gender identity (if verbalized by the patient): Female Spiritual care concerns: No Agree to blood products: Yes Meds Home Medications and Allergies Home Medications Medication Instructions Recorded Confirmed Type multivitamin 1 tablet PO DAILY 03/06/19 05/23/22 History lutein 20 mg capsule 20 mg PO DAILY 03/15/19 05/23/22 History metformin 500 mg tablet 500 mg PO BID 03/15/19 05/23/22 History famotidine 10 mg tablet (Pepcid AC) 20 mg PO DAILY #30 tabs 03/30/19 05/23/22 Rx empagliflozin 10 mg tablet 10 mg PO DAILY 05/13/19 05/23/22 History (Jardiance) liraglutide 0.6 mg/0.1 mL (18 mg/3 See Rx Instructions subcut 05/13/19 05/23/22 History mL) subcutaneous pen injector .COMPLEX dm2 (Victoza 2-Raymond) alprazolam 0.25 mg tablet 0.25 mg PO DAILY PRN anxiety #20 12/09/19 05/23/22 Rx tabs lev
[2022-06-01 10:07] VITALS: BP 96/83; PULSE 80; RESP 16; O2SAT 100
[2022-06-01 10:17] VITALS: BP 128/72; PULSE 80; RESP 16; O2SAT 98
[2022-06-01 10:27] VITALS: BP 137/63; PULSE 83; RESP 16; O2SAT 98
--- NOTE | 2022-06-01 10:31 | SUR.PHASEII ---
1025; PT AWAKE AND ALERT. EATING AND DRINKING. TALKATIVE. DENIES PAIN.
--- NOTE | 2022-06-01 10:33 | WPDANESPN ---
Anes - Prog Note Post-Op Date/Time: 06/01/22 10:33 Cardiovascular status: normal Respiratory status: normal Airway patency: baseline Mental status: baseline Post-Op hydration status: normal Vital Signs: Last Vital Signs Temp 36.5 C 06/01/22 07:50 Pulse 83 06/01/22 10:27 Resp 16 06/01/22 10:27 BP 137/63 06/01/22 10:27 Pulse Ox 98 06/01/22 10:27 O2 Del Method Room Air 06/01/22 10:27 Pain Score (VAS): 0 I/O: Intake & Output 05/31/22 06/01/22 06/01/22 23:59 07:59 15:59 Intake Total 700 Balance 700 06/01/22 08:05 POC Capillary Glucose 138 H Post-procedural complaints: none Patient Feedback: Patient satisfied with anesthetic care.
== END 2022-06-01 10:45 | disposition home or self-care (01) ==
PROVIDERS: PCP Family Medicine; Visit Provider Surgery
PROC: 0DJD8ZZ Inspection of Lower Intestinal Tract, Via Natural or Artificial Opening Endoscopic (ICD-10-PCS; CPT 45378; principal; 2022-06-01 09:15)
DX: Z12.11 Encounter for screening for malignant neoplasm of colon (principal)
CPT/HCPCS: 45385

== ENCOUNTER 2022-06-01 09:00 | Outpatient (NON) | payer MEDICARE, SELFPAY | END 2022-06-01 09:01 | disposition home or self-care (01) | PROVIDERS: PCP Family Medicine; Visit Provider Surgery | DX: D12.7 Benign neoplasm of rectosigmoid junction (principal); D12.0 Benign neoplasm of cecum; D12.5 Benign neoplasm of sigmoid colon; D12.3 Benign neoplasm of transverse colon | CPT/HCPCS: 88305 ==

== ENCOUNTER 2022-06-15 13:13 | Outpatient (CLI) | payer MEDICARE, SELFPAY ==
--- NOTE | ~2022-06-15 | MM_ITS ---
EXAMINATION: MM screening [place] BI w jaylan HISTORY: Screening mammogram TECHNIQUE: Craniocaudal and mediolateral oblique 3-D tomosynthesis images were obtained and synthetic 2-D images were generated. CAD analysis was submitted and interpreted. COMPARISON: No prior mammogram is available for comparison at this institution. BREAST PARENCHYMAL COMPOSITION: There are scattered areas of fibroglandular density. FINDINGS: There is a biopsy marker on the left. There are scattered bilateral benign calcifications. There is no evidence of suspicious mass, calcification, or architectural distortion to suggest malign josé miguel in either breast.. IMPRESSION: 1. No mammographic evidence of malignancy. 2. Recommend routine screening mammography in one year. BI-RADS Category 2: Benign finding(s). Reviewed, dictated and finalized at location A. [employer]ACH[employer]
--- NOTE | ~2022-06-15 | CT_ITS ---
CT Scan of the Chest without Contrast: Clinical Indication: Pulmonary nodule Technique: Contiguous sections were acquired throughout the chest without intravenous contrast. Dose reduction technique was used on this scan by utilizing automated exposure control and iterative recon struction technique. The dose-length product (DLP) was 129.39 mGy-cm. COMPARISON: 03/29/2019 Findings: There is no evidence of any significant mediastinal, hilar or axillary lymphadenopathy. There are ath erosclerotic calcifications of the aorta. No aortic aneurysm. There is no evidence of pleural or pericardial effusion. Stable subcentimeter right middle lobe pulmonary nodule measuring approximately 4 mm. There is linear bibasilar scarring or atelectasis. Images through the upper abdomen reveal no abnormalities. Impression: Stable subcentimeter right middle lobe pulmonary nodule. Stability since 2018 is compatible with alfredo gnity. Linear bibasilar scarring or atelectasis. Reviewed, dictated and finalized at [facility]. [employer] Impression: Stable subcentimeter right middle lobe pulmonary nodule. Stability since 2019 i s compatible with benignity. Linear bibasilar scarring or atelectasis.
== END 2022-06-15 13:14 | disposition home or self-care (01) ==
LOC: CHSIMG 13:14
PROVIDERS: PCP Family Medicine; Visit Provider Family Medicine
DX: Z12.31 Encounter for screening mammogram for malignant neoplasm of breast (principal); R91.1 Solitary pulmonary nodule; R91.8 Other nonspecific abnormal finding of lung field
CPT/HCPCS: 71250; 77063; 77067

== ENCOUNTER 2023-05-17 08:50 | Outpatient (CLI) | payer MEDICARE, SELFPAY ==
[2023-05-17 09:21] LABS: Hemoglobin A1C 6.6 % (<5.7)
[2023-05-17 09:45] LABS: Creatinine Urine 75.53 mg/dL (40-278); MALB Creatinine Ratio 197.1 mg/g (0-30); Microalbumin Urine Random 148.9 mg/L
[2023-05-17 10:32] LABS: Alanine Aminotransferase 28 U/L (14-59); Albumin Level 3.5 g/dL (3.4-5.0); Alkaline Phosphatase 72 U/L (46-116); Anion Gap 11 mmol/L (8-16); Aspartate Amino Transferase 16 U/L (15-37); Bilirubin,Total 0.7 mg/dL (0.00-1.00); Blood Urea Nitrogen 15 mg/dL (7-18); Calcium 9.4 mg/dL (8.5-10.1); Carbon Dioxide 26 mmol/L (21-32); Chloride 103 mmol/L (98-108); Cholesterol 147 mg/dL (0-200); Estimated Glomerular Filt Rate > 60; Free T4 Free Thyroxine 1.08 ng/dL (0.76-1.46); Glucose 126 mg/dL (70-99); HDL Direct 76 mg/dL (40-60); LDL Cholesterol Calculated 50 mg/dL (<130); Osmolality Calculated 292 mOsm/kg (285-295); Potassium 4.1 mmol/L (3.5-5.1); Sodium 140 mmol/L (136-145); Thyroid Stimulating Hormone 0.68 uIU/mL (0.36-3.74); Total Protein 6.5 g/dL (6.4-8.2); Triglycerides 104 mg/dL (0-150)
== END 2023-05-17 08:51 | disposition home or self-care (01) ==
LOC: CHSLAB 08:51
PROVIDERS: PCP Family Medicine; Visit Provider Family Medicine
DX: E11.9 Type 2 diabetes mellitus without complications (principal); E03.9 Hypothyroidism, unspecified
CPT/HCPCS: 36415; 80053; 80061; 82043; 83036; 84439; 84443

== ENCOUNTER 2023-08-10 00:44 | Day surgery (SDC) | payer MEDICARE, SELFPAY ==
[2023-07-31 09:16] VITALS: BMI 32.1
[2023-08-10 07:09] VITALS: BP 128/65; PULSE 72; RESP 20; TEMP 36.3; O2SAT 95
[2023-08-10] MEDS: LACTATED RINGERS 1,000 ML 150 ML IV CONT (07:30)
[2023-08-10 07:31] LABS: Glucose Point of Care 126 mg/dl (65-105)
--- NOTE | 2023-08-10 07:52 | PM.IMHP ---
H&P: HPI History of Present Illness Date/Time: 08/10/23 07:52 Chief Complaint: history of colon polyps Narrative: this is a 78-year-old woman who presents for colonoscopy. She last had a colonoscopy 1 year ago. She had 7 polyps removed at that time. She reports no hematochezia melena. Review of Systems Review of Systems: All systems reviewed & are unremarkable except as noted in HPI and below Constitutional: Constitutional: Denies chills, Denies fever(s), Denies headache(s) and Denies weight loss Eyes: Eyes: Denies change in vision ENT: Denies dizziness, Denies headache(s), Denies neck mass and Denies throat swelling Cardiovascular: Cardiovascular: Denies chest pain, Denies lightheadedness and Denies dyspnea Respiratory: Respiratory: Denies cough, Denies dyspnea and Denies wheezing Gastrointestinal: Gastrointestinal: Denies abdominal pain, Denies change in bowel habits, Denies nausea and Denies vomiting Genitourinary: Genitourinary: Denies hematuria and Denies dysuria Musculoskeletal: Musculoskeletal: Reports as per HPI Integumentary/Breasts: Skin/Breast: Reports as per HPI Neurologic: Denies dizziness and Denies headache(s) Allergic/Immunologic: Allergic/Immunologic: Denies throat swelling and Denies wheezing [facility] Past Medical History Medical History (Updated 08/10/23 @ 07:52 by Marcelino Mancia DO) Asthma COPD (chronic obstructive pulmonary disease) LATRELL (generalized anxiety disorder) Hyperlipidemia associated with type 2 diabetes mellitus Hypertension associated with diabetes Hypothyroidism Obesity Overweight Pulmonary nodule Type 2 diabetes mellitus Surgical History Surgical History History of cholecystectomy History of hysterectomy History of tonsillectomy Hx of appendectomy Hx of cataract surgery Bilateral 2015 Family History Family History Father Heart disease Hypertension Diabetes mellitus Mother Cerebrovascular accident CAD (coronary artery disease) Rheumatic heart disease Sibling Breast cancer Father Hypertension Family history of type 2 diabetes mellitus Mother Family history of coronary artery disease Social History Social History Smoking status: Never smoker Second hand tobacco smoke exposure: Yes ( smoked for 46 years, smoked in home and vehicle, quit in 1984) Alcohol intake: current Drinks per week: 0 Substance use: never Substance use type: does not use Other substance usage details: rarely drinks alcohol Lack of Transportation: No Lack of Food: Never True Current Housing: I Have Housing Concerned About Future Housing: No Difficulty Paying Gas/Electric Bills: No Difficulty Paying for Meds: No Currently Unemployed: No Education: Master's Degree or Higher Difficulty w/ Childcare or Family Care: No Living arrangements: with family Additional living arrangements comments: . 2 Children. 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 Gender identity (if verbalized by the patient): Female Spiritual care concerns: No Agree to blood products: Yes Meds Home Medications and Allergies Home Medications Medication Instructions Recorded Confirmed Type lutein 20 mg capsule 20 mg PO DAILY 03/15/19 07/31/23 History metformin 500 mg tablet 500 mg PO BID 03/15/19 07/31/23 History empagliflozin 10 mg tablet 10 mg PO DAILY 05/13/19 07/31/23 History (Jardiance) epinephrine 0.3 mg/0.3 mL 0.3 mg (0.3 mL) IM ONCE PRN 02/17/22 07/31/23 Rx injection, auto-injector anaphylaxis #2 ea levothyroxine 88 mcg capsule 88 mcg PO DAILY #90 caps 08/04/22 08/10/23 Rx atorvastatin 40 mg tablet See Rx Instructions .Route 02/08/23 07/31/23 Rx .COMPLEX #90 tabs diltiazem HCl 120 mg
--- NOTE | 2023-08-10 08:06 | WPDANESEPPF ---
Anes - Initial Pre Proc Eval Procedure: Operation Date: 08/10/23 08:30 Proposed Procedures p Screening Colonoscopy - Marcelino Mancia DO Date/Time: 08/10/23 08:06 Surgeon: Marcelino Mancia DO Pre Op Diagnosis: History of prior colon polyps Patient Data Age: 78 Gender: F Height: 1.55 m Weight: 75 kg Last Vital Signs Temp 97.4 F L 08/10/23 07:09 Pulse 72 08/10/23 07:09 Resp 20 08/10/23 07:09 BP 128/65 08/10/23 07:09 Pulse Ox 95 08/10/23 07:09 O2 Del Method Room Air 08/10/23 07:09 Allergies Allergy/AdvReac Type Severity Reaction Status Date / Time codeine Allergy Unknown heart Verified 08/10/23 07:06 palpatations Home Medications Medication Instructions Recorded Confirmed Type lutein 20 mg capsule 20 mg PO DAILY 03/15/19 07/31/23 History metformin 500 mg tablet 500 mg PO BID 03/15/19 07/31/23 History empagliflozin 10 mg tablet 10 mg PO DAILY 05/13/19 07/31/23 History (Jardiance) epinephrine 0.3 mg/0.3 mL 0.3 mg (0.3 mL) IM ONCE PRN 02/17/22 07/31/23 Rx injection, auto-injector anaphylaxis #2 ea levothyroxine 88 mcg capsule 88 mcg PO DAILY #90 caps 08/04/22 08/10/23 Rx atorvastatin 40 mg tablet See Rx Instructions .Route 02/08/23 07/31/23 Rx .COMPLEX #90 tabs diltiazem HCl 120 mg See Rx Instructions .Route 03/13/23 07/31/23 Rx capsule,extended release 12 hr .COMPLEX #180 caps cetirizine 10 mg tablet (All Day 10 mg PO DAILY PRN allergy 05/03/23 07/31/23 Rx Allergy (cetirizine)) symptoms #90 tabs semaglutide 1 mg/dose (4 mg/3 mL) 1 mg subcut WEEKLY 05/03/23 07/31/23 History subcutaneous pen injector (Ozempic) amitriptyline 25 mg tablet See Rx Instructions .Route 05/09/23 07/31/23 Rx .COMPLEX #90 tabs olmesartan 40 mg tablet See Rx Instructions .Route 05/09/23 07/31/23 Rx .COMPLEX #90 tabs atenolol 100 mg tablet See Rx Instructions .Route 05/17/23 08/10/23 Rx .COMPLEX #90 tabs famotidine 10 mg tablet (Pepcid AC) 20 mg PO DAILY #90 tabs 05/17/23 07/31/23 Rx ascorbic acid (vitamin C) 500 mg 500 mg PO DAILY 07/31/23 07/31/23 History tablet cholecalciferol (vitamin D3) 25 25 mcg PO DAILY 07/31/23 07/31/23 History mcg (1,000 unit) capsule (Vitamin D3) ferrous sulfate 27 mg iron tablet 27 mg PO DAILY 07/31/23 07/31/23 History sertraline 50 mg tablet See Rx Instructions .Route 08/07/23 Rx .COMPLEX #90 tabs Laboratory Tests 08/10/23 07:20 POC Capillary Glucose 126 H mg/dl (65-105) Patient hx anesthesia problems: none Family hx anesthesia problems: none Results Review: All pre-operative results and documents have been reviewed as part of the pre-operative evaluation. [facility] Past Medical History Medical History (Updated 08/10/23 @ 07:52 by Marcelino Mancia DO) Asthma COPD (chronic obstructive pulmonary disease) LATRELL (generalized anxiety disorder) Hyperlipidemia associated with type 2 diabetes mellitus Hypertension associated with diabetes Hypothyroidism Obesity Overweight Pulmonary nodule Type 2 diabetes mellitus Surgical History Surgical History History of cholecystectomy History of hysterectomy History of tonsillectomy Hx of appendectomy Hx of cataract surgery Bilateral 2015 Family History Family History Father Heart disease Hypertension Diabetes mellitus Mother Cerebrovascular accident CAD (coronary artery disease) Rheumatic heart disease Sibling Breast cancer Father Hypertension Family history of type 2 diabetes mellitus Mother Family history of coronary artery disease Social History Social History Smoking status: Never smoker Second hand tobacco smoke exposure: Yes ( smoked for 46 years, smoked in home and vehicle, quit in 1984) Alcohol intake: current Drinks per week: 0 Substance
[2023-08-10 09:13] VITALS: BP 136/72; PULSE 70; RESP 16; O2SAT 97
[2023-08-10 09:23] VITALS: BP 128/64; PULSE 67; RESP 18; O2SAT 97
[2023-08-10 09:33] VITALS: BP 129/60; PULSE 66; RESP 18; O2SAT 100
== END 2023-08-10 09:35 | disposition home or self-care (01) ==
PROVIDERS: PCP Family Medicine; Visit Provider Surgery
PROC: 0DJD8ZZ Inspection of Lower Intestinal Tract, Via Natural or Artificial Opening Endoscopic (ICD-10-PCS; CPT 45378; principal; 2023-08-10 08:30)
DX: Z12.11 Encounter for screening for malignant neoplasm of colon (principal); D12.5 Benign neoplasm of sigmoid colon; K62.1 Rectal polyp; I10 Essential (primary) hypertension; E78.5 Hyperlipidemia, unspecified; E11.9 Type 2 diabetes mellitus without complications; E03.9 Hypothyroidism, unspecified; J45.909 Unspecified asthma, uncomplicated; J44.9 Chronic obstructive pulmonary disease, unspecified; F41.9 Anxiety disorder, unspecified; Z79.84 Long term (current) use of oral hypoglycemic drugs; Z79.85 Long-term (current) use of injectable non-insulin antidiabetic drugs; Z98.890 Other specified postprocedural states; Z90.49 Acquired absence of other specified parts of digestive tract; Z80.3 Family history of malignant neoplasm of breast; Z82.49 Family history of ischemic heart disease and other diseases of the circulatory system
CPT/HCPCS: 45380; 82948; 88305; J2001; J2704; J7120